=== PATIENT | female | born 1950 | race Caucasian/White ===

== ENCOUNTER 2016-06-09 13:30 | Emergency (ER) | payer OTHER ==
[2016-06-09] MEDS ORDERED: NORMAL SALINE 10 ML SYRINGE FLUSH IVP PRN ×2 (13:33→13:44)
[2016-06-09] MEDS ORDERED: fentaNYL Inj 100 MCG/2 ML VIAL IVP ONE (13:44)
[2016-06-09 13:56] LABS: BASOPHILS # (AUTO) 0.01 10*3/UL; BASOPHILS % (AUTO) 0.1 % (0-1); EOSINOPHILS % (AUTO) 5.4 % (0-8); HEMATOCRIT 40.8 % (37.0-47.0); HEMOGLOBIN 13.5 g/dL (12.0-16.0); IMM GRAN % (AUTO) 0.3 % (0-5); IMM GRAN# (AUTO) 0.03 10*3/UL; LYMPHOCYTES # (AUTO) 2.36 10*3/uL; LYMPHOCYTES % (AUTO) 23.7 % (10-50); MEAN CORPUSCULAR HEMOGLOBIN 26.8 PG (27-31); MEAN CORPUSCULAR HGB CONC 33.1 g/dL (33-37); MEAN PLATELET VOLUME 9.5 FL (7.4-12.2); MONOCYTES # (AUTO) 1.15 10*3/UL (0.3-0.8); MONOCYTES % (AUTO) 11.6 % (5-15); NEUTROPHILS # (AUTO) 5.85 10*3/UL; NEUTROPHILS % (AUTO) 58.9 % (50-80); RDW COEFFICIENT OF VARIATION 15.2 % (11.5-14.5); RED BLOOD COUNT 5.03 10^6/uL (4.20-5.40); WHITE BLOOD COUNT 9.94 10^3/uL (4.8-10.8)
[2016-06-09 13:57] LABS: PLATELET MORPHOLOGY COMMENT NORMAL MORPHOLOGY (NORM)
[2016-06-09 14:07] LABS: PROTHROMBIN TIME 11.4 secs (9.7-11.4)
[2016-06-09 14:16] LABS: BILIRUBIN,TOTAL 0.3 mg/dL (0.3-1.2); CALCIUM 9.3 mg/dL (8.7-10.7); POTASSIUM 4.5 meq/L (3.8-5.2); TOTAL PROTEIN 6.7 g/dL (6.1-8.0)
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
== END 2016-06-09 18:03 | disposition home or self-care (01) ==
LOC: ER 13:30
DX: M54.2 Cervicalgia (principal); R10.84 Generalized abdominal pain; M25.511 Pain in right shoulder; M25.561 Pain in right knee; M50.322 Other cervical disc degeneration at C5-C6 level; M50.323 Other cervical disc degeneration at C6-C7 level; V48.5XXA Car driver injured in noncollision transport accident in traffic accident, initial encounter; Y92.411 Interstate highway as the place of occurrence of the external cause
CPT/HCPCS: 36415; 70450; 71260; 72125; 73030; 74177; 80053; 85025; 85610; 96374; 99283 ×2; J3010